=== PATIENT | male | born 1960 | race Caucasian/White ===

== ENCOUNTER 2018-11-01 07:36 | Day surgery (SDC) | payer BC ==
[2018-10-25 12:19] VITALS: BMI 22.9
[2018-11-01] MEDS: CIPROFLOXACIN 0.3% EYE DROPS 5 ML BOTTLE ONE ×3 (08:10→08:20)
[2018-11-01] MEDS: PHENYLEPHRINE 2.5% OPHTH SOLN 15 ML BOTTLE ONE ×3 (08:10→08:20)
[2018-11-01] MEDS: TROPICAMIDE 1% OPHTH SOLN 15 ML BOTTLE ONE ×3 (08:10→08:20)
[2018-11-01] MEDS: CYCLOPENTOLATE 2% OPHTH SOLN 2 ML BOTTLE ONE ×3 (08:10→08:20)
[2018-11-01] MEDS ORDERED: MIDAZOLAM HCL 2 MG/2 ML SINGLE DOSE VIAL ONE (08:42)
[2018-11-01] MEDS ORDERED: CARBACHOL 0.01% INTRA-OCULAR 1.5 ML VIAL ONE (08:58)
[2018-11-01] MEDS ORDERED: LIDOCAINE 1% P/F 10 MG/ML VIAL ONE (08:58)
[2018-11-01] MEDS ORDERED: BSS (NA/CA/MG/K) BALANCED SALT SOLUTION OPHTH SOLN 15 ML BOTTLE ONE (08:58)
--- NOTE | 2018-11-01 09:31 | OP ---
DATE OF OPERATION: 11/01/2018 OPERATIVE PROCEDURE: Lens Phacoemulsification with Posterior Chamber Intraocular Lens Placement, Right Eye PREOPERATIVE DIAGNOSIS: Visually Significant Cataract of Right Eye POSTOPERATIVE DIAGNOSIS: Visually Significant Cataract of Right Eye SURGEON: Rip Henriquez M.D. ANESTHESIA: MAC ANESTHESIOLOGIST: PROCEDURE: The patient was brought to the operating room and placed under monitored anesthesia care by Anesthesia. A drop of Tetracaine was then placed over the right eye. The patient was then prepped and draped in the usual sterile manner. A speculum was then placed over the right eye. The eye was then well irrigated with copious amounts of BSS (balanced salt solution). The operating microscope was then moved into position. A paracentesis was performed using a 15 degree blade. At this point 0.5 mL of 1% preservative free-lidocaine was injected into the anterior chamber. Amvisc plus was then injected into the anterior chamber. A clear corneal incision was then formed using a 2.2 mm keratome. A capsulorrhexis was then performed in a continuous circular fashion beginning with a cystotome completed with an Utratas forceps. Hydrodissection was then performed using BSS on a cannula. The phaco probe was then introduced through the corneal wound and the cataract was removed using the phaco chop technique. Approximately 3 seconds of absolute phaco time was used. The remaining cortex was then removed using irrigation and aspiration with an I/A probe. The capsule was then filled with regular Amvisc and the capsule was noted to be intact. A previously selected foldable posterior chamber intraocular lens was then injected into the capsule through the corneal wound using a lens injector. It was then dialed into position using a Sinskey hook. The Amvisc was then removed using irrigation and aspiration. Miostat was then injected through the paracentesis to constrict the pupil. The paracentesis and corneal wound were then hydrated and noted to be water tight. A drop of Maxitrol was then placed over the eye. The speculum was removed and clear shield was taped over the eye. The patient tolerated the procedure well and there were no surgical complications. The patient was asked to follow up in my office the next day. RIP HENRIQUEZ M.D. [id number]
[2018-11-01 13:02] VITALS: TEMP 97.6
[2018-11-01 13:05] VITALS: BP 98/64; PULSE 62
== END 2018-11-01 10:15 | disposition home or self-care (01) ==
LOC: FASU 07:36
PROVIDERS: ATTEND Ophthalmology
PROC: 08RJ3JZ Replacement of Right Lens with Synthetic Substitute, Percutaneous Approach (ICD-10-PCS; principal; 2018-11-01 09:00)
DX: H26.8 Other specified cataract (principal)

== ENCOUNTER 2018-11-28 09:50 | Day surgery (SDC) | payer BC ==
[2018-11-16 15:25] VITALS: BMI 22.6
[2018-11-28] MEDS ORDERED: CYCLOPENTOLATE 2% OPHTH SOLN 2 ML BOTTLE ONE (10:37)
[2018-11-28] MEDS ORDERED: PHENYLEPHRINE 2.5% OPHTH SOLN 15 ML BOTTLE ONE (10:37)
[2018-11-28] MEDS ORDERED: CIPROFLOXACIN 0.3% EYE DROPS 5 ML BOTTLE ONE (10:37)
[2018-11-28] MEDS ORDERED: TROPICAMIDE 1% OPHTH SOLN 15 ML BOTTLE ONE (10:38)
[2018-11-28] MEDS ORDERED: MIDAZOLAM HCL 2 MG/2 ML SINGLE DOSE VIAL ONE ×2 (11:53→12:07)
[2018-11-28] MEDS ORDERED: CARBACHOL 0.01% INTRA-OCULAR 1.5 ML VIAL ONE (11:53)
[2018-11-28] MEDS ORDERED: BSS (NA/CA/MG/K) BALANCED SALT SOLUTION OPHTH SOLN 15 ML BOTTLE ONE (11:53)
--- NOTE | 2018-11-28 13:06 | OP ---
DATE OF OPERATION: 11/28/2018 OPERATIVE PROCEDURE: Lens phacoemulsification with posterior chamber intraocular lens placement, left eye. PREOPERATIVE DIAGNOSIS: Visually significant cataract of left eye. POSTOPERATIVE DIAGNOSIS: Visually significant cataract of left eye. SURGEON: Rip Henriquez MD ANESTHESIA: MAC. PROCEDURE: The patient was brought to the operating room and placed under monitored anesthesia care by Anesthesia. A drop of tetracaine was then placed over the left eye. The patient was then prepped and draped in the usual sterile manner. A speculum was then placed over the left eye. The eye was then well irrigated with copious amounts of BSS (balanced salt solution). The operating microscope was then moved into position. A paracentesis was performed using a 15-degree blade. At this point 0.5 mL of 1% preservative-free lidocaine was injected into the anterior chamber. Amvisc Plus was then injected into the anterior chamber. A clear corneal incision was then formed using a 2.2-mm keratome. A capsulorrhexis was then performed in a continuous circular fashion beginning with a cystotome, completed with an Utratas forceps. Hydrodissection was then performed using BSS on a cannula. The phaco probe was then introduced through the corneal wound and the cataract was removed using the phaco chop technique. Approximately 3 seconds of absolute phaco time was used. The remaining cortex was then removed using irrigation and aspiration with an I/A probe. he capsule was then filled with regular Amvisc and the capsule was noted to be intact. A previously selected foldable posterior chamber intraocular lens was then injected into the capsule through the corneal wound using a lens injector. It was then dialed into position using a Sinskey hook. The Amvisc was then removed using irrigation and aspiration. Miostat was then injected through the paracentesis to constrict the pupil. The paracentesis and corneal wound were then hydrated and noted to be watertight. A drop of Maxitrol was then placed over the eye. The speculum was removed and clear shield was taped over the eye. The patient tolerated the procedure well and there were no surgical complications. The patient was asked to follow up in my office the next day. RIP HENRIUQEZ M.D. [id number]
[2018-11-28 13:08] VITALS: BP 118/67; PULSE 66; TEMP 98
== END 2018-11-28 13:15 | disposition home or self-care (01) ==
LOC: FASU 09:50
PROVIDERS: ATTEND Ophthalmology
PROC: 08RK3JZ Replacement of Left Lens with Synthetic Substitute, Percutaneous Approach (ICD-10-PCS; principal; 2018-11-28 12:10)
DX: H26.8 Other specified cataract (principal)

== ENCOUNTER 2025-02-01 09:34 | Emergency (ER) | payer BC, OTHER ==
[2025-02-01 09:48] VITALS: BP 131/63; PULSE 68; RESP 16; TEMP 98.2; BMI 23.3
[2025-02-01] MEDS ORDERED: IBUPROFEN 600 MG TABLET (FP) PO ONE (10:08)
[2025-02-01] MEDS ORDERED: ACETAMINOPHEN 500 MG TABLET (FP) ONE (10:08)
[2025-02-01] MEDS: ACETAMINOPHEN 500 MG TABLET (FP) PO ONE (10:10)
[2025-02-01] MEDS: IBUPROFEN 600 MG TABLET (FP) PO ONE (10:10)
== END 2025-02-01 10:19 | disposition home or self-care (01) ==
LOC: JERFT 09:34
DX: S89.92XA Unspecified injury of left lower leg, initial encounter (principal); X50.1XXA Overexertion from prolonged static or awkward postures, initial encounter; Y93.69 Activity, other involving other sports and athletics played as a team or group
CPT/HCPCS: 73560-TC-LT-FY; 99283-25

== ENCOUNTER 2025-03-27 19:57 | Emergency (ER) | payer OTHER ==
[2025-03-27 20:28] VITALS: TEMP 97.7; BMI 23.3
[2025-03-27 21:29] LABS: ABSOLUTE IMMATURE GRANULOCYTES 0.04 x10^3/uL (0.0-0.031); BASOPHILS # 0.02 x10^3/uL (0.01-0.08); HEMATOCRIT 38.1 % (40.1-51.0); HEMOGLOBIN 12.9 g/dL (13.7-17.5); MCHC 33.9 g/dl (32.3-36.5); MEAN CELL VOLUME 78.6 fl (79.0-92.2); MEAN PLT VOLUME 9.9 fl (9.4-12.4); MONOCYTE % 8.1 % (5.3-12.2); PLATELET COUNT 218 x10^3/uL (163-337); RDW 13.6 % (12.2-16.4); VENOUS O2 SATURATION 42.9 % (70-80); VENOUS PCO2 57.3 mmHg (38-52); VENOUS PH 7.3 (7.310-7.410)
[2025-03-27 21:40] LABS: INR 1.08 (0.83-1.09); PROTHROMBIN TIME (PATIENT) 11.9 SEC (9.7-13.0)
[2025-03-27 21:42] LABS: ACTIVATED PTT 22.3 SECONDS (25.2-36.5)
[2025-03-27 21:54] LABS: POTASSIUM 3.6 mmol/L (3.5-5.1)
[2025-03-27 21:55] LABS: CALCIUM 9.1 mg/dL (8.5-10.1)
[2025-03-27 21:56] LABS: MAGNESIUM 2.1 mg/dL (1.8-2.4)
[2025-03-27 21:59] LABS: CREATININE 1.4 mg/dL (0.55-1.3)
[2025-03-27] MEDS ORDERED: METOCLOPRAMIDE HCL INJECTION 10 MG/2 ML VIAL ONE (22:00)
[2025-03-27] MEDS ORDERED: ACETAMINOPHEN 325 MG TABLET (FP) ONE (22:00)
[2025-03-27 22:01] LABS: BILIRUBIN,TOTAL 1.1 mg/dL (0.2-1); TOT PROT 6.8 g/dl (6.4-8.2)
[2025-03-27] MEDS: ACETAMINOPHEN 500 MG TABLET (FP) PO ONE (22:08)
[2025-03-27] MEDS: METOCLOPRAMIDE HCL INJECTION 10 MG/2 ML VIAL IVPB ONE (22:08)
[2025-03-27 23:54] LABS: PHENCYCLIDINE,URINE NEGATIVE (NEGATIVE); URINE AMPHETAMINES NEGATIVE (NEGATIVE); URINE BARBITURATES NEGATIVE (NEGATIVE)
[2025-03-27 23:55] LABS: METHADONE, UR NEGATIVE (NEGATIVE)
[2025-03-28 00:01] LABS: COCAINE, UR NEGATIVE (NEGATIVE); OPIATES, URI NEGATIVE (NEGATIVE); URINE BENZODIAZEPINES NEGATIVE (NEGATIVE)
[2025-03-28 00:58] VITALS: BP 119/72; PULSE 74; RESP 17
== END 2025-03-28 00:10 | disposition home or self-care (01) ==
LOC: JER 19:57
PROC: 3E033GC Introduction of Other Therapeutic Substance into Peripheral Vein, Percutaneous Approach (ICD-10-PCS; principal; 2025-03-27)
DX: R55 Syncope and collapse (principal); T40.711A Poisoning by cannabis, accidental (unintentional), initial encounter; R07.9 Chest pain, unspecified
CPT/HCPCS: 36415; 70450-TC; 71045-TC-FY; 80053; 80307; 82803; 82962; 83735; 84484; 85025; 85610; 85730; 93005; 93010; 96374; 99285-25